=== PATIENT | male | born 1965 | race Caucasian/White ===

== ENCOUNTER 2024-04-10 13:27 | Outpatient (REF) | payer OTHER, SELFPAY ==
--- NOTE | ~2024-04-10 | MR_ITS ---
EXAMINATION: MR FOOT WITHOUT THEN WITH IV CONTRAST LEFT HISTORY: WOUND LT FOOT TMA, R/O OSSEOUS INVOLVEMENT. TECHNIQUE: Axial proton density and fat-suppressed T2, sagittal T1, fat-suppressed T2, and STIR, axial oblique proton density, and coronal fat-suppressed proton density and STIR images of the left foot were obtained. Subsequently, axial, sagittal, and coronal fat-suppressed T1-weighted images were obtained after the intravenous administration of 8.5 mm Gadavist. COMPARISON: There are no prior studies for comparison. FINDINGS: The patient is status post transmetatarsal amputation of the toes. There is a soft tissue ulceration overlying the 4th metatarsal stump. There is bone marrow edema involving the residual 4th metatarsal with associated contrast enhancement, consistent with osteomyelitis. The remaining metatarsal bases demonstrate normal signal intensity. There is an irregularly-shaped hypointense focus within the marrow of the distal tibia, with linear peripheral T2 hyperintensity, consistent with a bone infarct. Similar appearing abnormalities are seen in the talar dome and at the anterior aspect of the talus, compatible with avascular necrosis. In addition, a small similar-appearing lesion is noted in the posterior calcaneus at the posterior subtalar joint. There are multiple additional foci of marrow edema involving the anterior calcaneus at the calcaneocuboid articulation and involving the anterior and posterior cuboid. There is associated contrast enhancement. There is no tibiotalar joint effusion. No tendon or ligamentous abnormality is seen. There is no loculated fluid collection. MR/MR foot LT wo/w con IMPRESSION: 1. Status post transmetatarsal amputation. There is a soft tissue ulcer overlying the 4th metatarsal stump with findings consistent with osteomyelitis involving the residual 4th metatarsal. 2. 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 3. Bone marrow edema and enhancement at the calcaneocuboid joint and at the anterior aspect of the cuboid. It is difficult to exclude osteomyelitis in this locations. Follow-up is suggested. Electronically signed by: Farhat Arroyo MD 04/13/2024 08:01 AM EST
[2024-04-10] MEDS: gadobutroL 10 ML VIAL IVPUSH (14:45)
== END 2024-04-10 13:28 | disposition home or self-care (01) ==
LOC: HO.MRI 13:27
PROVIDERS: Visit Provider Podiatrist
DX: S91.302A Unspecified open wound, left foot, initial encounter (principal)
CPT/HCPCS: 73720; A9585

== ENCOUNTER → 2024-04-10 13:50 | Outpatient (BNV) | payer OTHER, SELFPAY | PROVIDERS: Visit Provider Radiology Diagnostic Radiology | DX: D75.89 Other specified diseases of blood and blood-forming organs (principal) | CPT/HCPCS: 73720 ==